=== PATIENT | female | born 1945 | race Caucasian/White ===

== ENCOUNTER → 2017-10-06 | Outpatient (CLI) | payer MEDICARE, OTHER ==
[~2017-10-06] MED LIST: ASCO1TAB PO; AZAT100T2 PO; BACDS PO; CALC500T53 PO; CALC600T63 PO; CRAN500C10 PO; ESC10 PO; HYDR-385 PO; LIDO20SO21 MM; MULTI VIT; MVM PO; OMEP-137 PO; PRA20 PO; PRE1 PO; RIFA550T PO; VIT-40 PO
== END ==
LOC: LAB 14:16
PROVIDERS: ATTEND Urology
DX: N39.0 Urinary tract infection, site not specified (principal)
CPT/HCPCS: 81001; 87088